=== PATIENT | female | born 2000 | race Caucasian/White ===

== ENCOUNTER → 2018-11-05 00:03 | Observation (INO) ==
[2018-11-04 23:17] LABS: Amphetamine Screen,Urine Negative ng/mL (Cutoff=1000); Barbiturate Screen,Urine Negative ng/mL (Cutoff=200); Benzodiazepines Screen,Urine Negative ng/mL (Cutoff=200); Cannabinoid Screen,Urine Negative ng/mL (Cutoff = 50); Cocaine Screen,Urine Negative ng/mL (Cutoff= 300); Opiate Screen,Urine Negative ng/mL (Cutoff=300); Phencyclidine Screen,Urine Negative ng/mL (Cutoff=25)
--- NOTE | 2018-11-05 00:28 | Discharge Summary ---
Date of Encounter: 11/05/18 Time of Encounter: 00:28 - Discharge Diagnosis (1) 28 weeks gestation of Priority: Primary Status: Acute Comments: Admit to observation for patient complaint of contractions. (2) contractions Priority: Secondary Status: Acute Comments: Rare contractions noted, SVE closed/thick/high - Discharge Medications Prescriptions: No Action Flagyl 500 mg Tylenol 19 Tablet Home Medications: Flagyl 500 mg 11/04/18 [History] 19 Tablet 11/04/18 [History] Tylenol 11/04/18 [History] Allergies/Adverse Reactions: Allergy/AdvReac Type Severity Reaction Status Date / Time latex AdvReac Rash Verified 11/04/18 22:31 Data Procedures and tests throughout hospitalization: Laboratory Tests 11/04/18 22:30 Urine Opiates Screen Negative Ur Buprenorphine Scrn Negative Ur Barbiturates Screen Negative Ur Phencyclidine Scrn Negative Ur Amphetamines Screen Negative U Benzodiazepines Scrn Negative Urine Cocaine Screen Negative U Marijuana (THC) Screen Negative Ur Drug Screen Interp See Below Labs on day of discharge: Labs from last 24 hours 11/04/18 22:30 Urine Opiates Screen Negative Ur Buprenorphine Scrn Negative Ur Barbiturates Screen Negative Ur Phencyclidine Scrn Negative Ur Amphetamines Screen Negative U Benzodiazepines Scrn Negative Urine Cocaine Screen Negative U Marijuana (THC) Screen Negative Ur Drug Screen Interp See Below Date of admission: 11/04/18 22:13 Discharging clinician: Tasha Fuentes Anticipated date of discharge: 11/05/18 - Patient Status Disposition: Home, Self-Care Condition: Good Functional capacity at discharge: independent ambulation Overall status at discharge: patient is progressing back to baseline - Discharge Instructions Additional Instructions: KEEP ALL OB APPOINTMENTS LABOR AND DELIVERY DISCHARGE INSTRUCTIONS Signs and Symptoms to be Reported to your Doctor Immediately: * Sudden gush, continuous or intermittent lead of fluid from vagina (note the time of gush and color of fluid) * Onset of bright red vaginal bleeding with or without pain (if you had a vaginal exam during this visit you may notice some dark red spotting. This is normal.) * Lower abdominal cramping or backache that is premenstrual-like feeling. * More than 6 contractions in one hour. * Burning during urination, having to urinate more frequently or pain in your mid-back. * A change in the baby's activity. This could be an increase or decrease in activity. * Severe headache which does not go away with tylenol. * Sudden swelling in the face, hands, arms and/or legs. * Upper abdominal pain - sometimes associated with heartburn or nausea and is not relieved by Maalox, Mylanta or Tums. * Dizziness or blurred vision or visual disturbances (seeing stars/lights). * Kick Counts One hour after a meal, lay down on one side in a quiet place. Count the number of lori the baby moves during an hour. If less than 6 movements, notify your physician. Diet: *Force fluids - 8-10 tall glasses of fluid per day. May include popsicles and jello. *Limit caffeine - this includes chocolate, coffee, tea, any soft drink containing such as all francisco javier, Brian Yellow and Mountain Dew - Diet and Activity Activity: resume usual activities as tolerated Diet: regular diet (Increase water intake) Hospital Course [facility] NURSE Hospital course: Patient arrived today after being seen at [facility] for the same complaints. Patient was not satisfied with her care there so she came here for evaluation. She is followed by the providers at [facility] and records up to 19 weeks were reviewed. Appears patient has had an uncomplicated thus far. She reports frequent UTI's with previous and this one as well. She was just prescribed Keflex and Flagyl yesterday (presumably the Flagyl is for BV). She had a reactive tracing that was appropriate for gestational age and rare uterine contractions were noted. Cervix was closed/thick/high, UDS negative. UA was not repeated since she is currently being treated for a UTI. She reports her next appointment with her OB provider is next week and she is instructed to keep that appointment as scheduled. Time Attestation: Total time spent providing and/or coordinating discharge services: Time Spent: Less than 30 minutes Exam - Constitutional General appearance IM: A&O X 3, pleasant, no acute distress, answers questions appropriately - Respiratory Respiratory exam: Present: CTAB. Absent: respiratory distress - Cardiovascular Cardiovascular exam IM: Present: RRR, +S1, +S2. Absent: irregular rhythm - GI/Abdominal GI/Abdominal exam IM: normal bowel sounds, soft - Rectal Rectal exam: deferred - External exam: normal external exam - Extremities Exam Extremities exam IM: Present: full ROM, normal capillary refill, normal inspection. Absent: calf tenderness - Neurological Exam Neurological exam: alert, normal gait, oriented X3 - VTE Reasons for not Prescribing Prophylaxis: Treatment not Indicated - Low risk for VTE
== END | disposition home or self-care (01) ==
LOC: 1NENULAB
PROVIDERS: ADMIT Registered Nurse; ATTEND Registered Nurse